=== PATIENT | female | born 1975 ===

== ENCOUNTER → 2020-12-14 08:54 | Outpatient (CLI) | payer OTHER, SELFPAY ==
--- NOTE | 2020-12-14 | DI.MRI.S_ITS ---
PROCEDURE: MR CERVICAL SPINE WO CON INDICATIONS: Radiculopathy, cervical region TECHNIQUE: Noncontrast sagittal T1 spin echo and T2 fast spin echo, sagittal STIR, foraminal oblique sagittal T2 fast spin echo, and axial gradient echo or T2 fast spin echo through the cervical spine. COMPARISON: None. FINDINGS: Image quality: Excellent. Alignment and Curvature: There is normal bony alignment. There is straightening normal cervical spine curvature. Bone Marrow: Marrow demonstrates normal overall signal. Spinal Cord: Visualized spinal cord has normal size and signal. No cerebellar tonsillar herniation. Paraspinous Soft Tissues: No paravertebral masses. Prevertebral soft tissues are normal in thickness. C2-C3: Normal appearance. C3-C4: Loss of disc signal. Mild, diffuse disc bulge. Mild narrowing of the central canal. Mild bilateral neural foraminal narrowing. No neural compression. C4-C5: Loss of disc signal. Mild, diffuse disc bulge. Mild narrowing of the central canal. Mild bilateral neural foraminal narrowing. No neural compression. C5-C6: Loss of disc signal and height. Mild , diffuse disc bulge. Small central/right central disc protrusion. Mild to moderate narrowing of the central canal. Moderate right uncovertebral joint hypertrophy. Severe right neural foraminal narrowing with compression of the exiting right C6 nerve root. C6-C7: Loss of disc signal and slight loss of disc height. Mild to moderate diffuse disc bulge. Mild narrowing of the central canal. Mild bilateral neural foraminal narrowing. No neural compression. C7-T1: Normal appearance. IMPRESSION: 1. Multilevel degenerative disc disease. 2. Right C5-C6 uncovertebral arthropathy. 3. No severe central canal narrowing. 4. Severe right C5-C6 neural foraminal narrowing with compression of the exiting right C6 nerve root. Dictated by: Adrienne Capone MD, PhD on 12/14/2020 at 10:30 Approved by: Adrienne Capone MD, PhD on 12/14/2020 at 10:34
== END ==
PROVIDERS: Referring Provider Family Medicine; Visit Provider Family Medicine
DX: M50.11 Cervical disc disorder with radiculopathy, high cervical region (principal); M47.22 Other spondylosis with radiculopathy, cervical region; M48.02 Spinal stenosis, cervical region
CPT/HCPCS: 72141

== ENCOUNTER 2023-03-15 12:28 | Emergency (ER) | payer OTHER, SELFPAY ==
[2023-03-15 12:32] VITALS: BP 186/78; PULSE 78; RESP 14; TEMP 36.9; O2SAT 99; BMI 34.7
--- NOTE | 2023-03-15 12:41 | DI.CT.S_ITS ---
PROCEDURE: CT HEAD/BRAIN WO CON INDICATIONS: visual field disurbance on left, now resolved. TECHNIQUE: Noncontrast 4.5 mm thick angled axial sections acquired from the foramen magnum to the vertex, with coronal and sagittal reformats. For radiation dose reduction, the following was used: automated exposure control, adjustment of mA and/or kV according to patient size. COMPARISON: None. FINDINGS: Image quality: Excellent. CSF spaces: Basal cisterns are patent. No extra-axial fluid collections. Ventricles are normal in size and shape. Brain: No midline shift. No intracranial masses or hemorrhage. Donahue-white matter interface is normal. Skull and face: Calvarium and visualized facial bones are intact, without suspicious lesions. Sinuses: Visualized sinuses and mastoids are clear. IMPRESSION: Normal for age, source of current unilateral blurred vision symptoms is not seen. Dictated by: Colt Lindsey M.D. on 03/15/2023 at 13:29 Approved by: Colt Lindsey M.D. on 03/15/2023 at 13:30
[2023-03-15 13:08] VITALS: BP 155/80; PULSE 103; RESP 18; O2SAT 96
[2023-03-15 13:10] LABS: Add Manual Diff / Slide Review NO; Basophils Absolute Auto 100 /uL (0-100); Basophils Percent Auto 0.9 % (0-2); Eosinophils Absolute Auto 200 /uL (0-450); Hematocrit 43.5 % (36-46); Hemoglobin 14.6 g/dL (12.0-16.0); Lymphocytes Absolute Auto 2400 /uL (1100-4500); Lymphocytes Percent Auto 27.5 % (25-40); Mean Corpuscular HGB Conc 33.6 % (30-36); Mean Corpuscular Hemoglobin 29.3 PG (26-34); Mean Corpuscular Volume 87.3 fL (80-100); Monocytes Absolute Auto 400 /uL (0-900); Monocytes Percent Auto 4.2 % (3-14); Neutrophils Absolute Auto 5700 /uL (1500-7000); Neutrophils Percent Auto 65.4 % (50-75); Platelet Count 293 X10^3/uL (150-400); Red Blood Cell Count 4.98 X10^6/uL (4.0-5.2); Red Cell Distribution Width 13.2 % (11.6-14.8); White Blood Cell Count 8.7 X10^3/uL (4.5-11.0)
[2023-03-15 13:12] LABS: Prothrombin Time 11.1 SECONDS (10.1-12.7)
[2023-03-15 13:15] LABS: PTT Partial Thromboplastin Tim 35 SECONDS (26-36)
[2023-03-15 13:23] LABS: Alanine Aminotransferase 21 IU/L (<35); Albumin 4.4 g/dL (3.5-5.0); Albumin Globulin Ratio 1.3 (1.0-2.8); Alkaline Phosphatase 95 U/L (38-126); Aspartate Aminotransferase 23 IU/L (14-36); BUN Creatinine Ratio 14.8 (6-22); Bilirubin Total 0.4 mg/dL (0.2-1.3); Blood Urea Nitrogen 9 mg/dL (7-17); Calcium 9.3 mg/dL (8.4-10.2); Carbon Dioxide 27 mmol/L (22-32); Chloride 101 mmol/L (98-107); Creatine Kinase 119 U/L (30-135); Estimated Glomerular Filt Rate > 60 mL/min (>60); Globulin 3.5 g/dL (1.7-4.1); Glucose 149 mg/dL (70-100); HEMOLYSIS 16 (0-50); Magnesium 1.9 mg/dL (1.6-2.3); Potassium 3.7 mmol/L (3.4-5.1); Sodium 138 mmol/L (137-145); Total Protein 7.9 g/dL (6.3-8.2)
[2023-03-15 13:30] VITALS: BP 138/75; PULSE 81; O2SAT 97
[2023-03-15 13:34] LABS: Troponin I < 0.012 ng/mL (0.01-0.034)
[2023-03-15 13:41] LABS: UR Morphine/Opiate cutoff 300 Negative (Negative); Ur Creatinine Normal (Normal); Ur Specific Gravity Normal (Normal); Urine Amphetamines Negative (Negative); Urine Barbiturates Negative (Negative); Urine Benzodiazepines Negative (Negative); Urine Cocaine Negative (Negative); Urine MDMA Negative (Negative); Urine Methadone Negative (Negative); Urine Methamphetamines Negative (Negative); Urine Oxycodone Negative (Negative); Urine Phencyclidine Negative (Negative); Urine Tetrahydrocannabinol Negative (Negative); Urine Tricyclic Antidepressant Negative (Negative); Urine pH Normal (Normal)
[2023-03-15 14:00] VITALS: BP 135/69; PULSE 74; RESP 18; O2SAT 100
--- NOTE | 2023-03-15 14:08 | ED.NEUROSD ---
HPI - Neuro Symptoms/Deficit General Chief Complaint: Neuro Symptoms/Deficit Stated Complaint: states poss mini stroke/sent by patliliam Time Seen by Provider: 03/15/23 13:24 Source: patient Mode of arrival: Ambulatory Limitations: no limitations History of Present Illness HPI Narrative: This is a 47-year-old female with complaint of vision change to the left eye that was cracked into 3. Patient states it started about 945 this morning resolved around 1045 this morning. Patient states she would a little bit of headache when it occurred. She denies any other changes she did cover her eye she noted is only with the left if she had her left eye covered and her right open she states it was not present. She denies any pain in her eye. She does wear contact she is wearing them today. She does get annual yearly exams. She is told she might be having little changes with early glaucoma but otherwise no other acute change. Patient states she is not had similar issues in the past. She is wearing her contacts today. Denies any numbness, tingling or weakness, no facial droop, no difficulty with speech. No syncope. No chest pain or shortness of breath, no nausea or vomiting no other GI or urinary symptoms. Patient is not on any anticoagulants. No known drug allergies. On Anticoagulants: No Related Data Home Medications Medication Instructions Recorded Confirmed No Known Home Medications 03/15/23 03/15/23 Allergies Allergy/AdvReac Type Severity Reaction Status Date / Time No Known Drug Allergies Allergy Verified 03/15/23 12:35 Review of Systems Review of Systems ROS Unobtainable: All systems reviewed & are unremarkable except as noted in HPI and below Hematologic/Lymphatic On Anticoagulants: No Patient History Social History Smoking Status: Never smoker Smoking Status: Never smoker alcohol intake frequency: holidays/special occasions only Substance Use Type: does not use Exam Narrative Exam Narrative: GEN: well nourished, well appearing female, alert and oriented x 3, patient appears to be in mild distress. HEENT: Atraumatic, pupils are equal round reactive to light, extraocular movements are intact, nares are clear, TMs are clear with no fluid, there is no conjunctival pallor. Throat is clear without any exudates, erythema, tonsillar enlargement or uvular deviation HEART: Regular rate and rhythm without murmur, clicks, rubs. No carotid bruits, pulses are equal in upper and lower extremities LUNGS:Lungs clear to auscultation, no wheezes, rales, crackles, chest moves symmetrically ABD:bowel sounds normal, soft, non-tender, no guarding, rebound, rigidity, no masses noted, no hepatosplenomegaly :No CVA tenderness MSCL: Non-tender, no muscle atrophy, muscles strength 5/5 upper and lower extremities, full range of motion, normal gait NEURO:CN 2-12 intact, sensation normal, reflexes 2/4 upper and lower extremities. finger nose finger test normal, heel hauser test normal Initial Vital Signs Initial Vital Signs: Vital Signs Temperature 98.4 F 03/15/23 12:32 Pulse Rate 78 03/15/23 12:32 Respiratory Rate 14 03/15/23 12:32 Blood Pressure 186/78 H 03/15/23 12:32 Pulse Oximetry 99 03/15/23 12:32 Oxygen Delivery Method Room Air 03/15/23 12:32 Course Orders Ordered: ED Orders 03/15/23 12:41 CT head/brain wo con Stat 03/15/23 12:50 Complete Blood Count AUTO DIFF Stat Comprehensive Metabolic Panel Stat Magnesium Stat PTT Partial Thromboplastin Socrates Stat Prothrombin Time INR Stat Troponin & CK Cardiac Panel Stat 03/15/23 13:12 EKG-12 Lead Stat 03/15/23 13:28 Urine Drug Screen, Rapid Stat Discontinued Medications Ondansetron HCl (Ondansetron 4 Mg/2 Ml Inj) 4 mg IV NOW PRN PRN Reason: Nausea And Vomiting Ondansetron HCl (Ondansetron 4 Mg Odt) 4 mg SL NOW PRN PRN Reason: Nausea And Vomiting Vital Signs Vital signs: Vital Signs - 8 hr 03/15/23 13:30 03/15/23 13:30 03/15/23 14:00 Pulse Rate 81 Respiratory Rate Blood Pressure 138/75 135/69 Pulse Oximetry 97 Oxygen Delivery Method 03/15/23 14:00 03/15/23 14:30 03/15/23 14:30 Pulse Rate 74 85 Respiratory Rate 18 Blood Pressure 134/74 Pulse Oximetry 100 97 Oxygen Delivery Method Room Air 03/15/23 15:33 Pulse Rate 70 Respiratory Rate 15 Blood Pressure 138/80 Pulse Oximetry 99 Oxygen Delivery Method Room Air MDM - Neuro Symptoms/Deficit Lab Data 03/15/23 12:50 03/15/23 12:50 Labs: Lab Results 03/15/23 03/15/23 03/15/23 Range/Units 12:50 12:50 12:50 WBC 8.7 (4.5-11.0) X10^3/uL RBC 4.98 (4.0-5.2) X10^6/uL Hgb 14.6 (12.0-16.0) g/dL Hct 43.5 (36-46) % MCV 87.3 (80-100) fL MCH 29.3 (26-34) PG MCHC 33.6 (30-36) % RDW 13.2 (11.6-14.8) % Plt Count 293 (150-400) X10^3/uL Neut % (Auto) 65.4 (50-75) % Lymph % (Auto) 27.5 (25-40) % Ramsey % (Auto) 4.2 (3-14) % Eos % (Auto) 2.0 (2-4) % Baso % (Auto) 0.9 (0-2) % Neut # (Auto) 5700 (6201-6398) /uL Lymph # (Auto) 2400 (3444-4716) /uL Ramsey # (Auto) 400 (0-900) /uL Eos # (Auto) 200 (0-450) /uL Baso # (Auto) 100 (0-100) /uL PT 11.1 (10.1-12.7) SECONDS INR 1.0 (0.9-1.3) APTT 35 (26-36) SECONDS Sodium 138 (137-145) mmol/L Potassium 3.7 (3.4-5.1) mmol/L Chloride 101 (98-107) mmol/L Carbon Dioxide 27 (22-32) mmol/L BUN 9 (7-17) mg/dL Creatinine 0.61 (0.52-1.04) mg/dL Estimated GFR > 60 (>60) mL/min BUN/Creatinine Ratio 14.8 (6-22) Glucose 149 H (70-100) mg/dL Calcium 9.3 (8.4-10.2) mg/dL Magnesium 1.9 (1.6-2.3) mg/dL Total Bilirubin 0.4 (0.2-1.3) mg/dL AST 23 (14-36) IU/L ALT 21 (<35) IU/L Alkaline Phosphatase 95 (38-126) U/L Total Creatine Kinase 119 (30-135) U/L Troponin I < 0.012 (0.01-0.034) ng/mL Total Protein 7.9 (6.3-8.2) g/dL Albumin 4.4 (3.5-5.0) g/dL Globulin 3.5 (1.7-4.1) g/dL Albumin/Globulin Ratio 1.3 (1.0-2.8) U Opiates 300ng/mL cut (Negative) Ur Oxycodone Screen (Negative) Urine Methadone Screen (Negative) Ur Barbiturates Screen (Negative) U Tricyclic Antidepress (Negative) Ur Phencyclidine Scrn (Negative) Ur Amphetamines Screen (Negative) U Methamphetamines Scrn (Negative) Ur MDMA Scrn (Ecstasy) (Negative) U Benzodiazepines Scrn (Negative) Urine Cocaine Screen (Negative) U Marijuana (THC) Screen (Negative) 03/15/23 Range/Units 13:28 WBC (4.5-11.0) X10^3/uL RBC (4.0-5.2) X10^6/uL Hgb (12.0-16.0) g/dL Hct (36-46) % MCV (80-100) fL MCH (26-34) PG MCHC (30-36) % RDW (11.6-14.8) % Plt Count (150-400) X10^3/uL Neut % (Auto) (50-75) % Lymph % (Auto) (25-40) % Ramsey % (Auto) (3-14) % Eos % (Auto) (2-4) % Baso % (Auto) (0-2) % Neut # (Auto) (4502-2541) /uL Lymph # (Auto) (2405-7520) /uL Ramsey # (Auto) (0-900) /uL Eos # (Auto) (0-450) /uL Baso # (Auto) (0-100) /uL PT (10.1-12.7) SECONDS INR (0.9-1.3) APTT (26-36) SECONDS Sodium (137-145) mmol/L Potassium (3.4-5.1) mmol/L Chloride (98-107) mmol/L Carbon Dioxide (22-32) mmol/L BUN (7-17) mg/dL Creatinine (0.52-1.04) mg/dL Estimated GFR (>60) mL/min BUN/Creatinine Ratio (6-22) Glucose (70-100) mg/dL Calcium (8.4-10.2) mg/dL Magnesium (1.6-2.3) mg/dL Total Bilirubin (0.2-1.3) mg/dL AST (14-36) IU/L ALT (<35) IU/L Alkaline Phosphatase (38-126) U/L Total Creatine Kinase (30-135) U/L Troponin I (0.01-0.034) ng/mL Total Protein (6.3-8.2) g/dL Albumin (3.5-5.0) g/dL Globulin (1.7-4.1) g/dL Albumin/Globulin Ratio (1.0-2.8) U Opiates 300ng/mL cut Negative (Negative) Ur Oxycodone Screen Negative (Negative) Urine Methadone Screen Negative (Negative) Ur Barbiturates Screen Negative (Negative) U Tricyclic Antidepress Negative (Negative) Ur Phencyclidine Scrn Negative (Negative) Ur Amphetamines Screen Negative (Negative) U Methamphetamines Scrn Negative (Negative) Ur MDMA Scrn (Ecstasy) Negative (Negative) U Benzodiazepines Scrn Negative (Negative) Urine Cocaine Screen Negative (Negative) U Marijuana (THC) Screen Negative (Negative) Point of Care Testing Test Results Negative Urine Dip Bedside Urine Glucose Negative Bedside Urine Bilirubin - Negative Bedside Urine Ketone - Negative Urine Specific Tennyson 1.005 Bedside Urine Occult Blood - Negative Bedside Urine pH 6.0 Bedside Urine Protein - Negative Bedside Urine Urobilinogen - Negative Bedside Urine Nitrite - Negative Bedside Urine Leukocytes - Negative Esterase Imaging Data CT scan - head: Radiologist's Impression: Close Head CT (Signed) Colt Lindsey - 03/15/23 Cervical Spine MRI (Signed) Adrienne Capone - 12/14/[address] [address] [address] Scan Report Signed Patient: Aysha Gallagher MR#: [id number] : 1975 Acct:[id number] Age/Sex: 47 / F Date of Service: 03/15/23 Loc: ED Accession Number: [id number] ?? Procedure: CT head/brain wo con Ordering Provider: Shelly Gravse D.O. PROCEDURE:? CT HEAD/BRAIN WO CON ? INDICATIONS:? visual field disurbance on left, now resolved. ? TECHNIQUE:? Noncontrast 4.5 mm thick angled axial sections acquired from the foramen magnum to the vertex, with coronal and sagittal reformats.? For radiation dose reduction, the following was used:? automated exposure control, adjustment of mA and/or kV according to patient size.? ? COMPARISON:? None. ? FINDINGS:? Image quality:? Excellent.? ? CSF spaces:? Basal cisterns are patent.? No extra-axial fluid collections.? Ventricles are normal in size and shape.? ? Brain:? No midline shift.? No intracranial masses or hemorrhage.? Donahue-white matter interface is normal.? ? Skull and face:? Calvarium and visualized facial bones are intact, without suspicious lesions.? ? Sinuses:? Visualized sinuses and mastoids are clear.? ? IMPRESSION:? Normal for age, source of current unilateral blurred vision symptoms is not seen. ? ? Dictated by: Colt Lindsey M.D. on 03/15/2023 at 13:29 ? ? Approved by: Colt Lindsey M.D. on 03/15/2023 at 13:30?? ECG Data Attestation: I personally reviewed and interpreted this ECG as follows: Interpretation: Sinus rhythm first-degree AV block right axis deviation, rate 80 9p are 214 QRS of 98 QTC 462. No acute changes appreciated. MDM Narrative Medical decision making narrative: 47-year-old female who presents with complaint of what she calls her vision cracked in 3 after further discussion patient was sent by Dr. Lugo from urgent care for evaluation discussed with patient imaging and lab evaluation overall reassuring she would no other acute neurologic symptoms after further discussion seems to be monocular change and not binocular making more likely to be an eye issue and not stroke or central neurologic issue. Patient had no other acute changes her NIH is 0 symptoms lasted for about 40 or 50 minutes and resolved. 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 Discharge Plan Departure Patient Disposition: Home Clinical Impression: Alteration in vision Activity Restrictions/Additional Instructions: Please follow-up with ophthalmology for recheck this upcoming week. Please call for an appointment. You can follow up with the local ophthalmology here, contact information is included below please call today or Saturday morning for an appointment or you can follow up with your regular eye doctor. Please return for new or recurrent symptoms, severe headaches, sudden vision changes, no numbness, tingling or weakness, difficulty with speech or any other new or concerning changes. Prescriptions: No Action No Known Home Medications Referrals: Trevon Lilly MD [Physician] - Stand Alone Forms: Patient Portal/API
[2023-03-15 14:30] VITALS: BP 134/74; PULSE 85; O2SAT 97
[2023-03-15 15:33] VITALS: BP 138/80; PULSE 70; RESP 15; O2SAT 99
== END 2023-03-15 15:34 | disposition home or self-care (01) ==
PROVIDERS: Emergency Provider Emergency Medicine
DX: H54.7 Unspecified visual loss (principal)
CPT/HCPCS: 70450; 80053; 80305; 81003; 81025; 82550; 83735; 84484; 85025; 85610; 85730; 93005; 99284

== ENCOUNTER 2023-07-03 08:39 | Day surgery (SDC) | payer OTHER, SELFPAY ==
[2023-07-03 08:59] VITALS: BMI 31.0
[2023-07-03 09:02] VITALS: BP 105/71; PULSE 83; RESP 20; TEMP 37.1; O2SAT 99
[2023-07-03] MEDS: LACTATED RINGERS 1,000 ML 42 ML IV (09:17)
--- NOTE | 2023-07-03 09:31 | P.HP_ITS ---
History of Present Illness History of Present Illness Date Patient Seen: 07/03/23 Chief complaint: Colonoscopy Narrative: Family history of colon cancer in her mother. Last colonoscopy 10-12 years ago [facility] Medical History (Updated 07/03/23 @ 08:58 by Reinier Dias RN) Type 2 diabetes mellitus Surgical History (Updated 07/03/23 @ 08:55 by Reinier Dias, SANDRA) Previous section History of cholecystectomy Social History household members: spouse Smoking Status: Never smoker alcohol intake: current Meds Home Medications and Allergies Home Medications Medication Instructions Recorded Confirmed Type drospirenone 3 mg-ethinyl 1 tab PO DAILY 07/03/23 07/03/23 History estradiol 0.03 mg tablet (Ocella) lisinopril 2.5 mg tablet 2.5 mg PO DAILY 07/03/23 07/03/23 History metformin 500 mg tablet,extended 500 mg PO BID 07/03/23 07/03/23 History release 24 hr Allergies Allergy/AdvReac Type Severity Reaction Status Date / Time No Known Drug Allergies Allergy Verified 07/03/23 08:55 Exam Vital Signs (past 8 hours): - 07/03/23 09:02 Temperature 98.7 F Pulse Rate 83 Respiratory Rate 20 Blood Pressure 105/71 Pulse Oximetry 99 Oxygen Delivery Method Room Air Oxygen Delivery Method Room Air Narrative Exam Narrative: Oropharynx free of lesions Chest clear to auscultation percussion Cardiac exam reveals no S3 or murmur Assessment & Plan Assessment & Plan narrative: Family history of colon cancer need for colonoscopy. Risks, benefits, alternatives have been explained.
--- NOTE | 2023-07-03 09:32 | PM.OP.COLON ---
Operative Date/Time/Diagnoses Date of procedure: 07/03/23 Pre-op diagnosis: See indication and findings Procedure & Clinicians Study performed: Colonoscopy Indications: Family history of colon cancer in a first-degree relative Surgeon: Lopez Blood Procedure Notes Procedure in detail: After informed consent was obtained patient was placed in left lateral decubitus position. The video colonoscope was introduced the rectum slowly advanced cecum. Preparation was good. On slow withdrawal mucosa was carefully examined. The scope was removed. The patient tolerated procedure well. Blood loss none Complications none Sedation mac Findings 1. Normal colonoscopy to cecum Patient should have follow-up colonoscopy in 5 years.
[2023-07-03 10:02] VITALS: BP 107/71; PULSE 82; RESP 14; TEMP 36.6; O2SAT 98
[2023-07-03 10:07] VITALS: BP 113/70; PULSE 82; RESP 14; O2SAT 97
[2023-07-03 10:13] VITALS: BP 117/78; PULSE 63; RESP 16; TEMP 36.6; O2SAT 99
== END 2023-07-03 10:29 | disposition home or self-care (01) ==
PROVIDERS: PCP Nurse Practitioner Family; Referring Provider Internal Medicine Gastroenterology; Visit Provider Internal Medicine Gastroenterology
PROC: 0DJD8ZZ Inspection of Lower Intestinal Tract, Via Natural or Artificial Opening Endoscopic (ICD-10-PCS; CPT 45378; principal; 2023-07-03 10:00)
DX: Z12.11 Encounter for screening for malignant neoplasm of colon (principal); Z80.0 Family history of malignant neoplasm of digestive organs
CPT/HCPCS: 45378